=== PATIENT | male | born 1940 | race Caucasian/White ===

== ENCOUNTER 2017-09-08 12:01 | Emergency (ER) | payer MEDICARE, OTHER ==
[~2017-09-08] VITALS: Ht 188 cm; Wt 121.0 kg
[~2017-09-08 12:01] MED LIST: ATOR10 PO; AVOD0.5C PO; CIPR500T4 PO; COZA50TA PO; FOLI1TAB PO; LORTA5 PO; MAGN250T13 PO; METH2.5 PO; OMEG1CAP53 PO; PREV30CA36 PO; RAPA8CAP PO; SULF500T11 PO; WARF7.5 PO
[2017-09-08 12:06] VITALS: BP 177/92; PULSE 82; RESP 16; TEMP 98; O2SAT 96
[2017-09-08] MEDS ORDERED: METH2.5T PO (12:17)
[2017-09-08] MEDS ORDERED: TAMS0.4C4 PO (12:17)
[2017-09-08] MEDS ORDERED: ATOR10TA15 PO (12:17)
[2017-09-08] MEDS ORDERED: FOLI800T PO (12:17)
[2017-09-08] MEDS ORDERED: METO100T PO (12:24)
[2017-09-08] MEDS ORDERED: OMEP20TA93 PO (12:24)
[2017-09-08] MEDS ORDERED: SULF500T34 PO (12:24)
[2017-09-08] MEDS ORDERED: MAGN250T11 PO (12:24)
[2017-09-08] MEDS ORDERED: COUM7.5T PO (12:24)
[2017-09-08] MEDS ORDERED: OMEG1CAP53 PO (12:24)
[2017-09-08] MEDS ORDERED: SODIUM CHLORIDE 0.9% FLUSH 10 ML FLUSH IVF PRN (12:30)
[2017-09-08 12:35] VITALS: O2SAT 98
--- NOTE | 2017-09-08 12:42 | PD ---
HPI . Dizziness. Chief Complaint: Cardiac Complaint Time Seen by Provider: 12:14 Travel History International Travel<30 days: No Contact w/Intl Traveler<30days: No Traveled to known affect area: No History of Present Illness HPI Patient is a 76 year male on Coumadin due to a significant history of ventricular tachycardia and a Factor V deficiency presents with dizziness following 2 shocks from his implanted defibrillator. Patient reports this occurred roughly before 9:40AM in his garage when he felt light headed and sat down only to receive a small shock. Patient then decided it would be best to rest in his bed, but still felt dizzy and decided to lay down on the floor of the garage and felt an even bigger shock. The dizziness did resolve following the second shot. The patient and his then called their primary who told them to go to the hospital. Patient cannot recall any modifying factors. Patient denies any chest pain, chest pain with exertion, nausea, sweating, or shortness of breath. Patient has an AICD because of a previous history of VT. He states that he has not experienced defibrillations since the AICD was placed. PFSH Past Medical History Hx Anticoagulant Therapy: Yes (COUMADIN) Arthritis: Yes Asthma: No Blood Disorders: Yes (dvt and pe in past) Cardiovascular Problems: Yes (PACER/DEFIB) High Cholesterol: Yes COPD: No Diabetes: No Diminished Hearing: No Deep Vein Thrombosis: Yes Hypertension: Yes Kidney Stones: Yes Immunizations Current: No Tetanus Vaccination: > 5 Years Influenza Vaccination: Yes Past Surgical History Cardiac Surgery: Yes (DEFIBRILATOR/PACER) Eye Surgery: Yes (BILAT. CATARACT) Genitourinary Surgery: Yes (KIDNEY STONE) Thoracic Surgery: Yes (VENA CAVA FILTER) Tonsillectomy: Yes Other Surgery: Yes (RECTAL FISTULA) Social History Alcohol Use: No Tobacco Use: No Substance Use: No Allergies-Medications (Allergen,Severity, Reaction): Coded Allergies: *MDRO Multi-Drug Resistant Organism (Verified Adverse Reaction, Unknown, ) ESBL E. coli (urine) - 08/29/2015 Reported Meds & Prescriptions Reported Meds & Active Scripts Active Reported Metoprolol Tartrate 100 Mg Tab 100 Mg PO BID Omeprazole 20 Mg Tab 20 Mg PO DAILY Sulfasalazine DR (Sulfasalazine) 500 Mg Tab 1,000 Mg PO BID Lovaza (Fqgkj-9-Mffw Ethyl Esters) 1 Gm Cap 2 Gm PO BID Magnesium Oxide 250 Mg Tab 250 Mg PO DAILY Coumadin (Warfarin) 7.5 Mg Tab 7.5 Mg PO DAILY Tamsulosin (Tamsulosin HCl) 0.4 Mg Cap 0.4 Mg PO HS Folic Acid 0.8 Mg Tab 1 Mg PO DAILY Atorvastatin (Atorvastatin Calcium) 10 Mg Tab 10 Mg PO HS Methotrexate 2.5 Mg Tab 8 Tab PO Q7D Review of Systems Except as stated in HPI: all other systems reviewed are Neg HENT: Positive: Lightheadedness Cardiovascular: No: Chest Pain or Discomfort, Palpitations, Irregular Rhythm, Diaphoresis, Syncope, Dyspnea on exertion Respiratory: No: Shortness of Breath Gastrointestinal: No: Nausea, Vomiting Physical Exam Narrative GENERAL: Pleasant male in no acute distress SKIN: warm/dry. HEAD: Normocephalic. EYES: Pupils equal and round. No scleral icterus. No injection or drainage. ENT: No nasal bleeding or discharge. Mucous membranes pink and moist. NECK: Trachea midline. Full range of motion without pain.. CARDIOVASCULAR: Regular rate and rhythm. No clicks, rubs, or gallops. No bruits detected. RESPIRATORY: No accessory muscle use. Clear to auscultation. Breath sounds equal bilaterally. GASTROINTESTINAL: Abdomen soft. Nontender. Bowel sounds present. Nondistended. MUSCULOSKELETAL: No obvious deformities. NEUROLOGICAL: Awake and alert. No obvious cranial nerve deficits. Motor grossly within normal limits. Normal speech. PSYCHIATRIC: Appropriate mood and affect; insight and judgment normal. Data Data Last Documented VS Vital Signs Date Time Temp Pulse Resp B/P (MAP) Pulse Ox O2 Delivery O2 Flow Rate FiO2 09/08/17 13:35 61 14 157/92 (113) 97 Room Air 09/08/17 12:06 98.0 Orders Orders Basic Metabolic Panel (Bmp) (09/08/17 12:20) Ckmb (Isoenzyme) Profile (09/08/17 12:20) Complete Blood Count With Diff (09/08/17 12:20) Magnesium (Mg) (09/08/17 12:20) Prothrombin Time / Inr (Pt) (09/08/17 12:20) Act Partial Throm Time (Ptt) (09/08/17 12:20) Troponin I (09/08/17 12:20) Ecg Monitoring (09/08/17 12:20) Iv Access Insert/Monitor (09/08/17 12:20) Oximetry (09/08/17 12:20) Sodium Chloride 0.9% Flush (Ns Flush) (09/08/17 12:30) Electrocardiogram (09/08/17 12:34) Basic Metabolic Panel (Bmp) (09/08/17 12:34) CKMB (09/08/17 12:30) CKMB% (09/08/17 12:30) Labs Laboratory Tests Test 09/08/17 00:00 09/08/17 12:30 White Blood Count 6.8 TH/MM3 Red Blood Count 4.48 MIL/MM3 Hemoglobin 14.4 GM/DL Hematocrit 43.6 % Mean Corpuscular Volume 97.2 FL Mean Corpuscular Hemoglobin 32.2 PG Mean Corpuscular Hemoglobin Concent 33.1 % Red Cell Distribution Width 13.4 % Platelet Count 134 TH/MM3 Mean Platelet Volume 8.3 FL Neutrophils (%) (Auto) 72.3 % Lymphocytes (%) (Auto) 19.8 % Monocytes (%) (Auto) 5.8 % Eosinophils (%) (Auto) 0.8 % Basophils (%) (Auto) 1.3 % Neutrophils # (Auto) 4.9 TH/MM3 Lymphocytes # (Auto) 1.3 TH/MM3 Monocytes # (Auto) 0.4 TH/MM3 Eosinophils # (Auto) 0.1 TH/MM3 Basophils # (Auto) 0.1 TH/MM3 CBC Comment DIFF FINAL Differential Comment Prothrombin Time 28.1 SEC Prothromb Time International Ratio 2.8 RATIO Activated Partial Thromboplast Time 30.1 SEC Blood Urea Nitrogen 17 MG/DL Creatinine 1.10 MG/DL Random Glucose 125 MG/DL Calcium Level 8.5 MG/DL Magnesium Level 2.0 MG/DL Sodium Level 139 MEQ/L Potassium Level 4.1 MEQ/L Chloride Level 107 MEQ/L Carbon Dioxide Level 27.4 MEQ/L Anion Gap 5 MEQ/L Estimat Glomerular Filtration Rate 65 ML/MIN Total Creatine Kinase 153 U/L Creatine Kinase MB 2.6 NG/ML Troponin I 0.17 NG/ML MDM Medical Decision Making Medical Screen Exam Complete: Yes Emergency Medical Condition: Yes Interpretation(s) EKG shows a paced rhythm. Differential Diagnosis My differential diagnosis of AICD discharge includes but is not limited to inappropriate discharge, appropriate discharge, sensation of discharge with no discharge delivered Narrative Course Patient presents with the chief complaint of his AICD firing 2. He did have antecedent dizziness which resolved after the second shot. He has a history of V. tach which is why he has the AICD. His AICD has been interrogated. It did fire appropriately. CBC & BMP Diagram 09/08/17 12:30 Calcium Level 8.5, Magnesium Level 2.0 trop 0.17 which was expected since his AICD fired. This patient's AICD operated appropriately. He is safe for discharge to home. Diagnosis Primary Impression: AICD discharge Patient Instructions: General Instructions, Implantable Cardioverter Defibrillator (DC) Disposition: DISCHARGE HOME Condition: Stable Samantha Chopra MD Sep 08, 2017 12:42
[2017-09-08 12:53] LABS: AUTOMATED NEUTROPHIL # 4.9 TH/MM3 (1.8-7.7); BASOPHIL # 0.1 TH/MM3 (0-0.2); BASOPHIL % 1.3 % (0.0-2.0); EOSINOPHIL # 0.1 TH/MM3 (0-0.4); EOSINOPHIL % 0.8 % (0.0-4.0); HEMATOCRIT 43.6 % (39.0-51.0); HEMOGLOBIN 14.4 GM/DL (13.0-17.0); LYMPH % 19.8 % (9.0-44.0); LYMPHOCYTE # 1.3 TH/MM3 (1.0-4.8); MEAN CELL VOLUME 97.2 FL (80.0-100.0); MEAN CORPUSCULAR HEMOGLOBIN 32.2 PG (27.0-34.0); MEAN CORPUSCULAR HGB CONC 33.1 % (32.0-36.0); MEAN PLATELET VOLUME 8.3 FL (7.0-11.0); MONO % 5.8 % (0.0-8.0); MONOCYTE # 0.4 TH/MM3 (0-0.9); NEUT % 72.3 % (16.0-70.0); PLATELET COUNT 134 TH/MM3 (150-450); RED BLOOD COUNT 4.48 MIL/MM3 (4.50-5.90); RED CELL DISTRIBUTION WIDTH 13.4 % (11.6-17.2); WHITE BLOOD COUNT 6.8 TH/MM3 (4.0-11.0)
[2017-09-08 12:54] LABS: CHLORIDE 107 MEQ/L (98-107); SODIUM (NA) 139 MEQ/L (136-145)
[2017-09-08 12:56] LABS: CALCIUM 8.5 MG/DL (8.5-10.1)
[2017-09-08 12:57] LABS: BICARBONATE 27.4 MEQ/L (21.0-32.0); BLOOD UREA NITROGEN 17 MG/DL (7-18); GLUCOSE,RANDOM 125 MG/DL (74-106)
[2017-09-08 13:00] LABS: GLOMERULAR FILTRATION RATE 65 ML/MIN (>89)
[2017-09-08 13:04] LABS: INTERNATIONAL NORMALIZED RATIO 2.8 RATIO; PROTHROMBIN TIME - PATIENT 28.1 SEC (9.8-11.6)
[2017-09-08 13:05] LABS: TROPONIN I 0.17 NG/ML (0.02-0.05)
[2017-09-08 13:35] VITALS: BP 157/92; PULSE 61; RESP 14; O2SAT 97
[2017-09-08 14:31] VITALS: BP 157/83
--- NOTE | 2017-09-08 21:53 | EKG ---
Date Performed: 09/08/2017 Time Performed: 12:14:51 PTAGE: 76 years EK% AV sequential pacing ABNORMAL RHYTHM ECG PREVIOUS TRACING : 04/16/2014 07.55 DOCTOR: Abbe Gill Interpretating Date/Time 09/08/2017 21:51:20
== END 2017-09-08 14:34 | disposition home or self-care (01) ==
LOC: PHED 12:01
DX: T82.897A Other specified complication of cardiac prosthetic devices, implants and grafts, initial encounter (principal); E78.00 Pure hypercholesterolemia, unspecified; I10 Essential (primary) hypertension; R94.31 Abnormal electrocardiogram [ECG] [EKG]; Z79.01 Long term (current) use of anticoagulants; Z86.718 Personal history of other venous thrombosis and embolism
CPT/HCPCS: 80048; 82550; 82552; 83735; 84484; 85025; 85610; 85730; 93005; 99284

== ENCOUNTER 2017-09-12 11:12 | Inpatient (IN) | payer MEDICARE, OTHER ==
[~2017-09-12] VITALS: Ht 188 cm; Wt 120.1 kg
[~2017-09-12 11:12] MED LIST changes: -ATOR10 PO; +ATOR10TA15 PO; -AVOD0.5C PO; -CIPR500T4 PO; +COUM7.5T PO; -COZA50TA PO; -FOLI1TAB PO; +FOLI800T PO; -LORTA5 PO; +MAGN250T11 PO; -MAGN250T13 PO; -METH2.5 PO; +METH2.5T PO; +METO100T PO; +OMEP20TA93 PO; -PREV30CA36 PO; -RAPA8CAP PO; -SULF500T11 PO; +SULF500T34 PO; +TAMS0.4C4 PO; -WARF7.5 PO
[2017-09-12 11:14] VITALS: BP 177/86; PULSE 68; RESP 22; O2SAT 100
--- NOTE | 2017-09-12 11:25 | PD ---
HPI Chief Complaint: Cardiac Complaint Time Seen by Provider: 11:14 Travel History International Travel<30 days: No Contact w/Intl Traveler<30days: No Traveled to known affect area: No History of Present Illness HPI The patient is a 77-year-old male who presents to the emergency department for dizziness, blurry vision, and possible arrhythmia. The patient has a history of ventricular arrhythmias, had an AICD placed. The patient states he has a [employer] device and is followed by his hearing aid consultant, Dr. Wing. The patient states he was seen in the emergency department several days ago, had his pacemaker interrogated, stated he was shocked several times, although he only noticed to the shocks. The patient was discharged home and has an appointment on Monday with his hearing aid consultant. The patient states this morning he became lightheaded, dizzy, and had some blurry vision. When EMS arrived they noted the patient had several runs of ventricular tachycardia lasting less than 30 seconds. The patient denies any firing from his AICD. He denies any chest pain, shortness of breath, nausea, vomiting, or abdominal pain. The patient is anticoagulated on Coumadin for history of pulmonary embolism and DVT, also has an IVC filter in place. Symptoms are moderate, self resolving, possibly exacerbated by history of previous arrhythmias. PFSH Past Medical History Hx Anticoagulant Therapy: Yes (COUMADIN) Arthritis: Yes Asthma: No Blood Disorders: Yes (dvt and pe in past) Cardiovascular Problems: Yes (PACER/DEFIB) High Cholesterol: Yes COPD: No Diabetes: No Diminished Hearing: No Deep Vein Thrombosis: Yes Hypertension: Yes Kidney Stones: Yes Immunizations Current: No Past Surgical History Cardiac Surgery: Yes (DEFIBRILATOR/PACER) Eye Surgery: Yes (BILAT. CATARACT) Genitourinary Surgery: Yes (KIDNEY STONE) Thoracic Surgery: Yes (VENA CAVA FILTER) Tonsillectomy: Yes Other Surgery: Yes (RECTAL FISTULA) Social History Alcohol Use: No Tobacco Use: No Substance Use: No Allergies-Medications (Allergen,Severity, Reaction): Coded Allergies: *MDRO Multi-Drug Resistant Organism (Verified Adverse Reaction, Unknown, ) ESBL E. coli (urine) - 08/29/2015 Reported Meds & Prescriptions Reported Meds & Active Scripts Active Reported Metoprolol Tartrate 100 Mg Tab 100 Mg PO BID Omeprazole 20 Mg Tab 20 Mg PO DAILY Sulfasalazine DR (Sulfasalazine) 500 Mg Tab 1,000 Mg PO BID Lovaza (Ltorq-1-Llce Ethyl Esters) 1 Gm Cap 2 Gm PO BID Magnesium Oxide 250 Mg Tab 250 Mg PO DAILY Coumadin (Warfarin) 7.5 Mg Tab 7.5 Mg PO DAILY Tamsulosin (Tamsulosin HCl) 0.4 Mg Cap 0.8 Mg PO HS Folic Acid 0.8 Mg Tab 1 Mg PO DAILY Atorvastatin (Atorvastatin Calcium) 10 Mg Tab 10 Mg PO HS Methotrexate 2.5 Mg Tab 8 Tab PO Q7D Review of Systems Except as stated in HPI: all other systems reviewed are Neg General / Constitutional: No: Fever Eyes: Positive: Blurred Vision HENT: Positive: Lightheadedness Cardiovascular: Positive: Irregular Rhythm, Tachycardia, No: Chest Pain or Discomfort, Diaphoresis Respiratory: No: Shortness of Breath Gastrointestinal: No: Nausea, Vomiting, Abdominal Pain Musculoskeletal: No: Weakness Neurologic: Positive: Dizziness Physical Exam Narrative GENERAL: Awake, alert, pleasant 77-year-old male who appears his stated age and is in no acute respiratory distress. SKIN: Focused skin assessment warm/dry. HEAD: Atraumatic. Normocephalic. EYES: Pupils equal and round. No scleral icterus. No injection or drainage. ENT: No nasal bleeding or discharge. Mucous membranes pink and moist. NECK: Trachea midline. No JVD. CARDIOVASCULAR: Regular rate and rhythm. No murmur appreciated. Heart rate in the 70s. AICD in place left chest wall. RESPIRATORY: No accessory muscle use. Clear to auscultation. Breath sounds equal bilaterally. GASTROINTESTINAL: Abdomen soft, non-tender, nondistended. No rebound tenderness. MUSCULOSKELETAL: No obvious deformities. No clubbing. No cyanosis. No edema. NEUROLOGICAL: Awake and alert. No obvious cranial nerve deficits. Motor grossly within normal limits. Normal speech. Nonfocal. Oriented 4. PSYCHIATRIC: Appropriate mood and affect; insight and judgment normal. Data Data Last Documented VS Vital Signs Date Time Temp Pulse Resp B/P (MAP) Pulse Ox O2 Delivery O2 Flow Rate FiO2 09/12/17 13:40 60 13 130/75 (93) 100 Nasal Cannula 2.00 Orders Orders Electrocardiogram (09/12/17 11:20) Ckmb (Isoenzyme) Profile (09/12/17 11:20) Complete Blood Count With Diff (09/12/17 11:20) Comprehensive Metabolic Panel (09/12/17 11:20) Magnesium (Mg) (09/12/17 11:20) Prothrombin Time / Inr (Pt) (09/12/17 11:20) Act Partial Throm Time (Ptt) (09/12/17 11:20) Troponin I (09/12/17 11:20) Ecg Monitoring (09/12/17 11:20) Iv Access Insert/Monitor (09/12/17 11:20) Oximetry (09/12/17 11:20) Oxygen Administration (09/12/17 11:20) Sodium Chloride 0.9% Flush (Ns Flush) (09/12/17 11:30) CKMB (09/12/17 11:15) CKMB% (09/12/17 11:15) Metoprolol Tartrate Inj (Lopressor Inj) (09/12/17 13:30) Magnesium Sulfate 1 Gm Premix (Magnesium (09/12/17 13:45) Admit Order (Ed Use Only) (09/12/17 13:47) Labs Laboratory Tests Test 09/12/17 11:15 White Blood Count 6.8 TH/MM3 Red Blood Count 4.68 MIL/MM3 Hemoglobin 15.3 GM/DL Hematocrit 46.1 % Mean Corpuscular Volume 98.4 FL Mean Corpuscular Hemoglobin 32.7 PG Mean Corpuscular Hemoglobin Concent 33.3 % Red Cell Distribution Width 14.0 % Platelet Count 156 TH/MM3 Mean Platelet Volume 8.5 FL Neutrophils (%) (Auto) 64.1 % Lymphocytes (%) (Auto) 28.2 % Monocytes (%) (Auto) 6.0 % Eosinophils (%) (Auto) 1.2 % Basophils (%) (Auto) 0.5 % Neutrophils # (Auto) 4.3 TH/MM3 Lymphocytes # (Auto) 1.9 TH/MM3 Monocytes # (Auto) 0.4 TH/MM3 Eosinophils # (Auto) 0.1 TH/MM3 Basophils # (Auto) 0.0 TH/MM3 CBC Comment DIFF FINAL Differential Comment Prothrombin Time 25.7 SEC Prothromb Time International Ratio 2.5 RATIO Activated Partial Thromboplast Time 28.9 SEC Blood Urea Nitrogen 18 MG/DL Creatinine 0.95 MG/DL Random Glucose 85 MG/DL Total Protein 7.0 GM/DL Albumin 3.4 GM/DL Calcium Level 8.0 MG/DL Magnesium Level 1.9 MG/DL Alkaline Phosphatase 59 U/L Aspartate Amino Transf (AST/SGOT) 48 U/L Alanine Aminotransferase (ALT/SGPT) 35 U/L Total Bilirubin 0.5 MG/DL Sodium Level 141 MEQ/L Potassium Level 4.5 MEQ/L Chloride Level 108 MEQ/L Carbon Dioxide Level 27.9 MEQ/L Anion Gap 5 MEQ/L Estimat Glomerular Filtration Rate 77 ML/MIN Total Creatine Kinase 145 U/L Creatine Kinase MB 1.1 NG/ML Troponin I LESS THAN 0.02 NG/ML MDM Medical Decision Making Medical Screen Exam Complete: Yes Emergency Medical Condition: Yes Medical Record Reviewed: Yes Interpretation(s) Laboratory Tests Test 09/12/17 11:15 White Blood Count 6.8 TH/MM3 Red Blood Count 4.68 MIL/MM3 Hemoglobin 15.3 GM/DL Hematocrit 46.1 % Mean Corpuscular Volume 98.4 FL Mean Corpuscular Hemoglobin 32.7 PG Mean Corpuscular Hemoglobin Concent 33.3 % Red Cell Distribution Width 14.0 % Platelet Count 156 TH/MM3 Mean Platelet Volume 8.5 FL Neutrophils (%) (Auto) 64.1 % Lymphocytes (%) (Auto) 28.2 % Monocytes (%) (Auto) 6.0 % Eosinophils (%) (Auto) 1.2 % Basophils (%) (Auto) 0.5 % Neutrophils # (Auto) 4.3 TH/MM3 Lymphocytes # (Auto) 1.9 TH/MM3 Monocytes # (Auto) 0.4 TH/MM3 Eosinophils # (Auto) 0.1 TH/MM3 Basophils # (Auto) 0.0 TH/MM3 CBC Comment DIFF FINAL Differential Comment Prothrombin Time 25.7 SEC Prothromb Time International Ratio 2.5 RATIO Activated Partial Thromboplast Time 28.9 SEC Blood Urea Nitrogen 18 MG/DL Creatinine 0.95 MG/DL Random Glucose 85 MG/DL Total Protein 7.0 GM/DL Albumin 3.4 GM/DL Calcium Level 8.0 MG/DL Magnesium Level 1.9 MG/DL Alkaline Phosphatase 59 U/L Aspartate Amino Transf (AST/SGOT) 48 U/L Alanine Aminotransferase (ALT/SGPT) 35 U/L Total Bilirubin 0.5 MG/DL Sodium Level 141 MEQ/L Potassium Level 4.5 MEQ/L Chloride Level 108 MEQ/L Carbon Dioxide Level 27.9 MEQ/L Anion Gap 5 MEQ/L Estimat Glomerular Filtration Rate 77 ML/MIN Total Creatine Kinase 145 U/L Creatine Kinase MB 1.1 NG/ML Troponin I LESS THAN 0.02 NG/ML Differential Diagnosis Differential diagnosis includes nonsustained ventricular tachycardia, ventricular tachycardia, electrolyte abnormality, cardiomyopathy, ischemic heart disease. Narrative Course IV was established, labs are drawn and sent, and the patient was placed on cardiac telemetry monitoring and continuous pulse oximetry monitoring. EKG was ordered and interpreted. [employer] was notified to interrogate the patient's pacemaker. The patient's pacemaker/AICD was evaluated by [employer], the patient had 30 runs of V. tach, most of them were terminated by pacer function, however, there have been 30 episodes of ventricular tachycardia since September 08. Therefore, a call was placed to the patient's hearing aid consultant, Dr. Wing , 1:16 PM. I discussed the patient with Dr. Wing, after discussion was agreed the patient would receive Lopressor 5 mg intravenously and will be admitted to the medical service. The patient's primary physician is Dr. Jimenez , therefore, [facility] for paged for admission. The patient's the patient's potassium was 4.5, magnesium was 1.9, therefore, 1 g of magnesium was given IVP back to get the magnesium level greater than 2.0. Physician Communication Physician Communication [facility] I discussed the patient with Dr. Chapa who agrees with admission Diagnosis Primary Impression: Ventricular tachyarrhythmia Admitting Information Admitting Physician Requests: Admit Condition: Stable Kwesi Talamantes MD Sep 12, 2017 11:24
[2017-09-12] MEDS ORDERED: SODIUM CHLORIDE 0.9% FLUSH 10 ML FLUSH IVF PRN (11:30)
[2017-09-12 11:49] LABS: AUTOMATED NEUTROPHIL # 4.3 TH/MM3 (1.8-7.7); BASOPHIL % 0.5 % (0.0-2.0); EOSINOPHIL # 0.1 TH/MM3 (0-0.4); EOSINOPHIL % 1.2 % (0.0-4.0); HEMATOCRIT 46.1 % (39.0-51.0); HEMOGLOBIN 15.3 GM/DL (13.0-17.0); LYMPH % 28.2 % (9.0-44.0); LYMPHOCYTE # 1.9 TH/MM3 (1.0-4.8); MEAN CELL VOLUME 98.4 FL (80.0-100.0); MEAN CORPUSCULAR HEMOGLOBIN 32.7 PG (27.0-34.0); MEAN CORPUSCULAR HGB CONC 33.3 % (32.0-36.0); MEAN PLATELET VOLUME 8.5 FL (7.0-11.0); MONOCYTE # 0.4 TH/MM3 (0-0.9); NEUT % 64.1 % (16.0-70.0); PLATELET COUNT 156 TH/MM3 (150-450); RED BLOOD COUNT 4.68 MIL/MM3 (4.50-5.90); WHITE BLOOD COUNT 6.8 TH/MM3 (4.0-11.0)
[2017-09-12 12:00] VITALS: BP_SYST 139; BP_SYST 160; BP_DIAS 74; BP_DIAS 76; PULSE 58; PULSE 74; RESP 11; RESP 14; O2SAT 99
[2017-09-12 12:04] LABS: INTERNATIONAL NORMALIZED RATIO 2.5 RATIO; PROTHROMBIN TIME - PATIENT 25.7 SEC (9.8-11.6)
[2017-09-12 13:19] LABS: ALBUMIN 3.4 GM/DL (3.4-5.0); BICARBONATE 27.9 MEQ/L (21.0-32.0); BLOOD UREA NITROGEN 18 MG/DL (7-18); CHLORIDE 108 MEQ/L (98-107); CREATININE 0.95 MG/DL (0.60-1.30); GLOMERULAR FILTRATION RATE 77 ML/MIN (>89); GLUCOSE,RANDOM 85 MG/DL (74-106); MAGNESIUM 1.9 MG/DL (1.5-2.5); SODIUM (NA) 141 MEQ/L (136-145); TOTAL BILIRUBIN ADULT 0.5 MG/DL (0.2-1.0)
[2017-09-12 13:21] LABS: ALKALINE PHOSPHATASE 59 U/L (45-117); ALT (GPT) 35 U/L (12-78); AST (GOT) 48 U/L (15-37); TROPONIN I LESS THAN 0.02 NG/ML (0.02-0.05)
[2017-09-12] MEDS ORDERED: METOPROLOL TARTRATE 5 MG/5 ML VIAL IV PUSH ONE (13:30)
[2017-09-12 13:40] VITALS: BP 130/75; PULSE 60; RESP 13; O2SAT 100
[2017-09-12] MEDS ORDERED: MAGNESIUM SULFATE 1 GM PREMIX 100 ML IV ONE (13:45)
[2017-09-12] MEDS ORDERED: LACTULOSE SYRUP 20 GM/30 ML CUP PO PRN (14:00)
[2017-09-12] MEDS ORDERED: SODIUM CHLORIDE 0.9% FLUSH 10 ML FLUSH IV FLUSH PRN (14:00)
[2017-09-12] MEDS ORDERED: MAGNESIUM HYDROXIDE SUSP 30 ML CUP PO PRN (14:00)
[2017-09-12] MEDS ORDERED: ACETAMINOPHEN 325 MG TAB PO PRN (14:00)
[2017-09-12] MEDS ORDERED: TEMAZEPAM 15 MG CAP PO PRN (14:00)
[2017-09-12] MEDS ORDERED: SENNOSIDES 8.6 MG TAB PO PRN (14:00)
[2017-09-12] MEDS ORDERED: BISACODYL 10 MG SUPP RECTAL PRN (14:00)
[2017-09-12] MEDS ORDERED: ONDANSETRON HCL 4 MG/2 ML VIAL IVP PRN (14:00)
[2017-09-12] MEDS ORDERED: NALOXONE HCL 0.4 MG/ML AMP IV PUSH PRN (14:00)
[2017-09-12] MEDS ORDERED: METOPROLOL TARTRATE 5 MG/5 ML VIAL IV PUSH PRN (14:00)
[2017-09-12 14:31] VITALS: BP 135/81; PULSE 61; RESP 12; O2SAT 98
--- NOTE | 2017-09-12 15:47 | HHI.HP ---
HPI Service [facility] Primary Care Physician Unknown Admission Diagnosis ventricular tachyarrhythmia Diagnoses: Chief Complaint: sob Travel History International Travel<30 Days: No Contact w/Intl Traveler <30 Da: No Traveled to Known Affected Are: No History of Present Illness 77-year-old male who presents to the emergency department for dizziness, blurry vision, and possible arrhythmia. The patient has a history of ventricular arrhythmias, had an AICD placed. The patient states he has a [employer] device and is followed by his warehouse operations associate, Dr. Wing. The patient states he was seen in the emergency department several days ago, had his pacemaker interrogated, stated he was shocked several times, although he only noticed to the shocks. The patient was discharged home and has an appointment on Monday with his warehouse operations associate. The patient states this morning he became lightheaded, dizzy, and had some blurry vision. When EMS arrived they noted the patient had several runs of ventricular tachycardia lasting less than 30 seconds. The patient denies any firing from his AICD. He denies any chest pain, shortness of breath, nausea, vomiting, or abdominal pain. The patient is anticoagulated on Coumadin for history of pulmonary embolism and DVT , also has an IVC filter in place. Symptoms are moderate, self resolving, possibly exacerbated by history of previous arrhythmias. Patient had the pacemaker interrogated Patient had the pacemaker/AICD interrogated and had 30 runs of V. tach and habits 30 runs of V. tach since September 08. All seem to be terminated by the pacemaker function. Dr. Wing cardiology patient to receive Lopressor 5 mg IV patient received Lopressor 5 mg IV which was administered in the emergency room which was administered in the emergency room . Review of Systems Except as stated in HPI: all other systems reviewed are Neg Past Family Social History Past Medical History A. fib, hypertension hyperlipidemia, history of DVT, hypertension, hypertension , A. fib, hyperlipidemia, history of DVT Past Surgical History AICD Bilateral cataract surgery Bilateral cataract surgery Lithotripsy Lithotripsy Filter vena cava Surgery for rectal fistula Reported Medications Reported Meds & Active Scripts Active Reported Metoprolol Tartrate 100 Mg Tab 100 Mg PO BID Omeprazole 20 Mg Tab 20 Mg PO DAILY Sulfasalazine DR (Sulfasalazine) 500 Mg Tab 1,000 Mg PO BID Lovaza (Ghuse-1-Erjy Ethyl Esters) 1 Gm Cap 2 Gm PO BID Magnesium Oxide 250 Mg Tab 250 Mg PO DAILY Coumadin (Warfarin) 7.5 Mg Tab 7.5 Mg PO DAILY Tamsulosin (Tamsulosin HCl) 0.4 Mg Cap 0.8 Mg PO HS Folic Acid 0.8 Mg Tab 1 Mg PO DAILY Atorvastatin (Atorvastatin Calcium) 10 Mg Tab 10 Mg PO HS Methotrexate 2.5 Mg Tab 8 Tab PO Q7D Allergies: Coded Allergies: *MDRO Multi-Drug Resistant Organism (Verified Adverse Reaction, Unknown, ) ESBL E. coli (urine) - 08/29/2015 Family History No cardiac history in his family that he recalls. Social History Denies alcohol use, tobacco use or drug use. Physical Exam Vital Signs Vital Signs Date Time Temp Pulse Resp B/P (MAP) Pulse Ox O2 Delivery O2 Flow Rate FiO2 09/12/17 14:31 61 12 135/81 (99) 98 Nasal Cannula 2.00 09/12/17 13:40 60 13 130/75 (93) 100 Nasal Cannula 2.00 09/12/17 12:00 58 11 139/76 (97) 99 Nasal Cannula 2.00 09/12/17 11:24 61 100 Nasal Cannula 2.00 09/12/17 11:23 100 Nasal Cannula 2.00 09/12/17 11:14 68 22 177/86 (116) 100 Physical Exam GENERAL: This is a well-nourished, well-developed patient, in no apparent distress. SKIN: No rashes, ecchymoses or lesions. Cool and dry. HEAD: Atraumatic. Normocephalic. No temporal or scalp tenderness. EYES: Pupils equal round and reactive. Extraocular motions intact. No scleral icterus. No injection or drainage. ENT: Nose without bleeding, purulent drainage or septal hematoma. Throat without erythema, tonsillar hypertrophy or exudate. Uvula midline. Airway patent. NECK: Trachea midline. No JVD or lymphadenopathy. Supple, nontender, no meningeal signs. CARDIOVASCULAR: Regular rate and rhythm without murmurs, gallops, or rubs. RESPIRATORY: Clear to auscultation. Breath sounds equal bilaterally. No wheezes , rales, or rhonchi. GASTROINTESTINAL: Abdomen soft, non-tender, nondistended. No hepato-splenomegaly , or palpable masses. No guarding. MUSCULOSKELETAL: Extremities without clubbing, cyanosis, or edema. No joint tenderness, effusion, or edema noted. No calf tenderness. Negative Homans sign bilaterally. NEUROLOGICAL: Awake and alert. Cranial nerves II through XII intact. Motor and sensory grossly within normal limits. Five out of 5 muscle strength in all muscle groups. Normal speech. Laboratory Laboratory Tests Test 09/12/17 11:15 White Blood Count 6.8 Red Blood Count 4.68 Hemoglobin 15.3 Hematocrit 46.1 Mean Corpuscular Volume 98.4 Mean Corpuscular Hemoglobin 32.7 Mean Corpuscular Hemoglobin Concent 33.3 Red Cell Distribution Width 14.0 Platelet Count 156 Mean Platelet Volume 8.5 Neutrophils (%) (Auto) 64.1 Lymphocytes (%) (Auto) 28.2 Monocytes (%) (Auto) 6.0 Eosinophils (%) (Auto) 1.2 Basophils (%) (Auto) 0.5 Neutrophils # (Auto) 4.3 Lymphocytes # (Auto) 1.9 Monocytes # (Auto) 0.4 Eosinophils # (Auto) 0.1 Basophils # (Auto) 0.0 CBC Comment DIFF FINAL Differential Comment Prothrombin Time 25.7 Prothromb Time International Ratio 2.5 Activated Partial Thromboplast Time 28.9 Blood Urea Nitrogen 18 Creatinine 0.95 Random Glucose 85 Total Protein 7.0 Albumin 3.4 Calcium Level 8.0 Magnesium Level 1.9 Alkaline Phosphatase 59 Aspartate Amino Transf (AST/SGOT) 48 Alanine Aminotransferase (ALT/SGPT) 35 Total Bilirubin 0.5 Sodium Level 141 Potassium Level 4.5 Chloride Level 108 Carbon Dioxide Level 27.9 Anion Gap 5 Estimat Glomerular Filtration Rate 77 Total Creatine Kinase 145 Creatine Kinase MB 1.1 Troponin I LESS THAN 0.02 Result Diagram: 09/12/17 1115 09/12/17 111 Caprini VTE Risk Assessment Caprini VTE Risk Assessment: Mod/High Risk (score >= 2) Caprini Risk Assessment Model Point Value = 1 Point Value = 2 Point Value = 3 Point Value = 5 Age 41-60 Minor surgery BMI > 25 kg/m2 Swollen legs Varicose veins or History of unexplained or recurrent spontaneous Oral contraceptives or hormone replacement Sepsis (< 1 month) Serious lung disease, including pneumonia (< 1 month) Abnormal pulmonary function Acute myocardial infarction Congestive heart failure (< 1 month) History of inflammatory bowel disease Medical patient at bed rest Age 61-74 Arthroscopic surgery Major open surgery (> 45 min) Laparoscopic surgery (> 45 min) Malignancy Confined to bed (> 72 hours) Immobilizing plaster cast Central venous access Age >= 75 History of VTE Family history of VTE Factor V Leiden Prothrombin [id number] Lupus anticoagulant Anticardiolipin antibodies Elevated serum homocysteine Heparin-induced thrombocytopenia Other congenital or acquired thrombophilia Stroke (< 1 month) Elective arthroplasty Hip, pelvis, or leg fracture Acute spinal cord injury (< 1 month) Prophylaxis Regimen Total Risk Factor Score Risk Level Prophylaxis Regimen 0-1 Low Early ambulation 2 Moderate Order ONE of the following: *Sequential Compression Device (SCD) *Heparin 5000 units SQ BID 3-4 Higher Order ONE of the following medications: *Heparin 5000 units SQ TID *Enoxaparin/Lovenox 40 mg SQ daily (WT < 150 kg, CrCl > 30 mL/min) *Enoxaparin/Lovenox 30 mg SQ daily (WT < 150 kg, CrCl > 10-29 mL/min) *Enoxaparin/Lovenox 30 mg SQ BID (WT < 150 kg, CrCl > 30 mL/min) AND/OR *Sequential Compression Device (SCD) 5 or more Highest Order ONE of the following medications: *Heparin 5000 units SQ TID (Preferred with Epidurals) *Enoxaparin/Lovenox 40 mg SQ daily (WT < 150 kg, CrCl > 30 mL/min) *Enoxaparin/Lovenox 30 mg SQ daily (WT < 150 kg, CrCl > 10-29 mL/min) *Enoxaparin/Lovenox 30 mg SQ BID (WT < 150 kg, CrCl > 30 mL/min) AND *Sequential Compression Device (SCD) Assessment and Plan Assessment and Plan Ventricular tachyarrhythmia Patient had a recent AICD/pacemaker placement and was interrogated found with 30 episodes of ventricular tachycardia since September 08 all terminated by patient function. Administer Lopressor 5 mg by IV per Dr. Wing patient's cardiology. Restart home medications. Monitor on telemetry Chronic medical problems. At baseline. Restart home medications. Monitor. Adjust medications as needed. Discussed Condition With Patient, nurse, ED physician Dr. Meyer. Physician Certification 2 Midnight Certification Type: Admission for Inpatient Services Order for Inpatient Services The services are ordered in accordance with Medicare regulations or non- Medicare payer requirements, as applicable. In the case of services not specified as inpatient-only, they are appropriately provided as inpatient services in accordance with the 2-midnight benchmark. Estimated LOS (days): 3 days is the estimated time the patient will need to remain in the hospital, assuming treatment plan goals are met and no additional complications. Post-Hospital Plan: Home Alee Chapa MD Sep 12, 2017 15:47
[2017-09-12] MEDS ORDERED: METHOTREXATE 2.5 MG TAB PO SCH (16:00)
[2017-09-12 16:06] VITALS: BP 152/73; PULSE 55; RESP 18; TEMP 97.2; O2SAT 97
--- NOTE | 2017-09-12 18:46 | MB ---
cc: LUANN LOPEZ MD DATE OF CONSULTATION 09/12/2017 REASON FOR CONSULTATION Ventricular tachycardia. HISTORY OF PRESENT ILLNESS Mr. Rodríguez is a 77-year-old patient of mine who does have a history of primary ventricular tachycardia. He had a cardiac catheterization several years ago that was free of any significant disease. He subsequently underwent ICD implantation. He has been doing quite well with his metoprolol up until last Monday. Monday the patient had two episodes where he felt shocks. He subsequently was referred and came to the emergency room where interrogation indeed did show that he had received both ATP and defibrillation. The patient was discharged home without any medication changes. He subsequently had difficulties over the weekend with dizziness and lightheadedness as well as some blurred vision. He again came to the hospital and interrogation reveals that the patient has had 30 runs of ventricular tachycardia. The patient was subsequently admitted. PAST MEDICAL HISTORY Significant for: 1. Atrial fibrillation. 2. Hypertension. 3. Hyperlipidemia. 4. DVT. 5. Ventricular tachycardia with Medtronic ICD. 6. The patient did have cardiac catheterization in April of 2014 with normal coronaries and normal LV function. 7. Bilateral cataract surgery. 8. Lithotripsy. 9. And a rectal fistula. OUTPATIENT MEDICATIONS Include: 1. Metoprolol tartrate 100 milligrams twice a day. 2. Lovaza. 3. Coumadin. 4. Flomax 0.8 milligrams q.h.s. 5. Losartan 25 mg a day. 6. Atorvastatin. 7. Methotrexate. ALLERGIES NO KNOWN DRUG ALLERGIES. SOCIAL HISTORY The patient is . REVIEW OF SYSTEMS Except as mentioned in HPI all 12 systems are negative. PHYSICAL EXAMINATION VITAL SIGNS: 51, 12M, 135/81. GENERAL: In general he is an overweight man who is in no apparent distress. NECK: His neck is free from JVD. LUNGS: Bilaterally clear to auscultation. CARDIOVASCULAR: Examination he has a normal S1 and S2. ABDOMEN: Soft. EXTREMITIES: Are free from edema. ICD interrogation shows multiple runs of V-tach. IMPRESSION Ventricular tachycardia - the patient does have a history of the same. His blood pressure is fairly high such that I believe he will be able to tolerate metoprolol 150 mg b.i.d. I do not feel any repeat ischemia workup is indicated. Hypertension - I am going to hold his losartan at this point so we can increase the metoprolol. BPH - the Flomax as well will be held to afford more room for the metoprolol. Ken Orellana/KK /5:29 PM /6:22 PM SOPHIA
[2017-09-12 20:00] VITALS: BP 122/76; PULSE 59; PULSE 60; RESP 16; TEMP 97.9; O2SAT 98
[2017-09-12] MEDS: METOPROLOL TARTRATE 50 MG TAB PO SCH (20:49)
[2017-09-12] MEDS: sulfaSALAzine EC 500 MG TABEC PO SCH (20:49)
[2017-09-12] MEDS: DOCUSATE SODIUM 50 MG/SENNA 8.6 MG TAB PO SCH (20:49)
[2017-09-12] MEDS: SODIUM CHLORIDE 0.9% FLUSH 10 ML FLUSH IV FLUSH SCH (20:49)
[2017-09-12] MEDS ORDERED: METOPROLOL TARTRATE 100 MG TAB PO SCH (21:00)
[2017-09-12] MEDS ORDERED: ATORVASTATIN 10 MG TAB PO SCH (21:00)
[2017-09-12] MEDS ORDERED: TAMSULOSIN HCL 0.4 MG CAP PO SCH (21:00)
[2017-09-13] VITALS: BP 116/75; PULSE 59; PULSE 61; RESP 18; TEMP 99; O2SAT 97
[2017-09-13 04:00] VITALS: BP 119/76; PULSE 60; RESP 18; TEMP 97.8; O2SAT 97
[2017-09-13] MEDS: SODIUM CHLORIDE 0.9% FLUSH 10 ML FLUSH IV FLUSH SCH (06:52)
[2017-09-13 06:56] LABS: AUTOMATED NEUTROPHIL # 5.6 TH/MM3 (1.8-7.7); BASOPHIL % 0.4 % (0.0-2.0); EOSINOPHIL # 0.1 TH/MM3 (0-0.4); EOSINOPHIL % 1.4 % (0.0-4.0); HEMATOCRIT 43.7 % (39.0-51.0); HEMOGLOBIN 14.8 GM/DL (13.0-17.0); LYMPH % 28.1 % (9.0-44.0); LYMPHOCYTE # 2.4 TH/MM3 (1.0-4.8); MEAN CELL VOLUME 98.4 FL (80.0-100.0); MEAN CORPUSCULAR HEMOGLOBIN 33.3 PG (27.0-34.0); MEAN CORPUSCULAR HGB CONC 33.8 % (32.0-36.0); MEAN PLATELET VOLUME 8.6 FL (7.0-11.0); MONO % 4.9 % (0.0-8.0); MONOCYTE # 0.4 TH/MM3 (0-0.9); NEUT % 65.2 % (16.0-70.0); PLATELET COUNT 145 TH/MM3 (150-450); RED BLOOD COUNT 4.44 MIL/MM3 (4.50-5.90); WHITE BLOOD COUNT 8.6 TH/MM3 (4.0-11.0)
[2017-09-13 07:02] LABS: INTERNATIONAL NORMALIZED RATIO 2.4 RATIO; PROTHROMBIN TIME - PATIENT 23.8 SEC (9.8-11.6)
--- NOTE | 2017-09-13 07:04 | PD.CARD.PN ---
Subjective Subjective Remarks PT without complaints, requests d/c Objective Medications Current Medications Medications (Trade) Dose Ordered Sig/Delmy Route Start Time Stop Time Status Last Admin (NS Flush) 2 ml UNSCH PRN IVF 09/12/17 11:30 (Lipitor) 10 mg HS PO 09/12/17 21:00 09/12/17 20:48 (Azulfidine Ec) 1,000 mg BID PO 09/12/17 21:00 (Coumadin) 7.5 mg DAILY@1600 PO 09/13/17 16:00 (Mag-Ox) 400 mg DAILY PO 09/13/17 09:00 (Protonix) 20 mg DAILY PO 09/13/17 09:00 (Lopressor Inj) 5 mg Q6H PRN IV PUSH 09/12/17 14:00 (NS Flush) 2 ml UNSCH PRN IV FLUSH 09/12/17 14:00 (NS Flush) 2 ml BID IV FLUSH 09/12/17 21:00 09/13/17 06:52 (Tylenol) 650 mg Q4H PRN PO 09/12/17 14:00 (Zofran Inj) 4 mg Q6H PRN IVP 09/12/17 14:00 (Restoril) 15 mg HS PRN PO 09/12/17 14:00 (Narcan Inj) 0.4 mg UNSCH PRN IV PUSH 09/12/17 14:00 (Tere-Colace) 1 tab BID PO 09/12/17 21:00 09/12/17 20:49 (Milk Of Magnesia Liq) 30 ml Q12H PRN PO 09/12/17 14:00 (Senokot) 17.2 mg Q12H PRN PO 09/12/17 14:00 (Dulcolax Supp) 10 mg DAILY PRN RECTAL 09/12/17 14:00 (Lactulose Liq) 30 ml DAILY PRN PO 09/12/17 14:00 Pharmacy Profile Note 0 ml @ 0 mls/hr UNSCH OTHER 09/12/17 14:00 (Rheumatrex) 20 mg Q7D PO 09/16/17 09:00 (Lopressor) 150 mg BID PO 09/12/17 21:00 09/12/17 20:49 Vital Signs / I&O Vital Signs Date Time Temp Pulse Resp B/P (MAP) Pulse Ox O2 Delivery O2 Flow Rate FiO2 09/13/17 04:00 Nasal Cannula 2.00 09/13/17 00:00 61 09/13/17 00:00 Nasal Cannula 2.00 09/12/17 20:00 59 09/12/17 20:00 Nasal Cannula 2.00 09/12/17 20:00 97.9 60 16 122/76 (91) 98 09/12/17 16:06 97.2 55 18 152/73 (99) 97 09/12/17 15:54 09/12/17 14:31 61 12 135/81 (99) 98 Nasal Cannula 2.00 09/12/17 13:40 60 13 130/75 (93) 100 Nasal Cannula 2.00 09/12/17 12:00 58 11 139/76 (97) 99 Nasal Cannula 2.00 09/12/17 11:24 61 100 Nasal Cannula 2.00 09/12/17 11:23 100 Nasal Cannula 2.00 09/12/17 11:14 68 22 177/86 (116) 100 I/O 09/12/17 09/12/17 09/12/17 09/13/17 09/13/17 09/13/17 07:00 15:00 23:00 07:00 15:00 23:00 Intake Total 100 ml Output Total 800 ml Balance -700 ml Intake IV Total 100 ml Output Urine Total 800 ml Physical Exam GENERAL: Well developed, well nourished. No acute distress. HEENT: Jugular venous pressure is normal. CHEST: Lungs clear to auscultation bilaterally. Unlabored respiratory effort. CARDIAC: Regular rate and rhythm without S3, S4, or murmur. ABDOMEN: Soft, nontender, no hepatosplenomegaly. Bowel sounds present. EXTREMITIES: No clubbing, cyanosis, or edema. Laboratory Laboratory Tests Test 09/12/17 11:15 09/13/17 05:44 White Blood Count 6.8 TH/MM3 8.6 TH/MM3 Red Blood Count 4.68 MIL/MM3 4.44 MIL/MM3 Hemoglobin 15.3 GM/DL 14.8 GM/DL Hematocrit 46.1 % 43.7 % Mean Corpuscular Volume 98.4 FL 98.4 FL Mean Corpuscular Hemoglobin 32.7 PG 33.3 PG Mean Corpuscular Hemoglobin Concent 33.3 % 33.8 % Red Cell Distribution Width 14.0 % 14.0 % Platelet Count 156 TH/MM3 145 TH/MM3 Mean Platelet Volume 8.5 FL 8.6 FL Neutrophils (%) (Auto) 64.1 % 65.2 % Lymphocytes (%) (Auto) 28.2 % 28.1 % Monocytes (%) (Auto) 6.0 % 4.9 % Eosinophils (%) (Auto) 1.2 % 1.4 % Basophils (%) (Auto) 0.5 % 0.4 % Neutrophils # (Auto) 4.3 TH/MM3 5.6 TH/MM3 Lymphocytes # (Auto) 1.9 TH/MM3 2.4 TH/MM3 Monocytes # (Auto) 0.4 TH/MM3 0.4 TH/MM3 Eosinophils # (Auto) 0.1 TH/MM3 0.1 TH/MM3 Basophils # (Auto) 0.0 TH/MM3 0.0 TH/MM3 CBC Comment DIFF FINAL DIFF FINAL Differential Comment Prothrombin Time 25.7 SEC Prothromb Time International Ratio 2.5 RATIO Activated Partial Thromboplast Time 28.9 SEC Blood Urea Nitrogen 18 MG/DL Creatinine 0.95 MG/DL Random Glucose 85 MG/DL Total Protein 7.0 GM/DL Albumin 3.4 GM/DL Calcium Level 8.0 MG/DL Magnesium Level 1.9 MG/DL Alkaline Phosphatase 59 U/L Aspartate Amino Transf (AST/SGOT) 48 U/L Alanine Aminotransferase (ALT/SGPT) 35 U/L Total Bilirubin 0.5 MG/DL Sodium Level 141 MEQ/L Potassium Level 4.5 MEQ/L Chloride Level 108 MEQ/L Carbon Dioxide Level 27.9 MEQ/L Anion Gap 5 MEQ/L Estimat Glomerular Filtration Rate 77 ML/MIN Total Creatine Kinase 145 U/L Creatine Kinase MB 1.1 NG/ML Troponin I LESS THAN 0.02 NG/ML Assessment and Plan Assessment and Plan Primary VT- doing well over night on 150 metoprolol -ok for ambulation after second dose this am -reasonable for d/c this afternoon if no significant VT HTN- good on present meds, continue to hold losartan dispo- ok for d/c later today as above and follow up early next week -no strenuous activity for now Guillermina Wing MD Sep 13, 2017 07:04
[2017-09-13 07:22] LABS: BICARBONATE 28.4 MEQ/L (21.0-32.0); CALCIUM 8.5 MG/DL (8.5-10.1); CREATININE 0.94 MG/DL (0.60-1.30)
[2017-09-13 08:00] VITALS: BP 120/75; PULSE 67; RESP 18; TEMP 97.1; O2SAT 96
[2017-09-13] MEDS: METOPROLOL TARTRATE 50 MG TAB PO SCH (08:22)
[2017-09-13] MEDS: DOCUSATE SODIUM 50 MG/SENNA 8.6 MG TAB PO SCH (08:22)
[2017-09-13] MEDS: sulfaSALAzine EC 500 MG TABEC PO SCH (08:22)
[2017-09-13] MEDS ORDERED: MAGNESIUM OXIDE 400 MG TAB PO SCH (09:00)
[2017-09-13] MEDS ORDERED: PANTOPRAZOLE SOD 20 MG DELAYED RELEASE TAB PO SCH (09:00)
[2017-09-13 12:00] VITALS: O2SAT 96
--- NOTE | 2017-09-13 13:06 | EKG ---
Date Performed: 09/12/2017 Time Performed: 11:14:02 PTAGE: 77 years EKG: ELECTRONIC ATRIAL PACEMAKER ELECTRONIC VENTRICULAR PACEMAKER ABNORMAL RHYTHM ECG INTERPRETA TION BASED ON A DEFAULT AGE OF 40 YEARS NO PREVIOUS TRACING DOCTOR: Cesar Marshall Interpretating Date/Time 09/13/2017 12:57:11
[2017-09-13] MEDS ORDERED: METO100T PO (13:26)
--- NOTE | 2017-09-13 13:26 | HHI.DCPOC ---
Discharge Care Plan Diagnosis: (1) Ventricular tachyarrhythmia Your Health Problems Are: Difficulty with ADL Exercise Tolerance Goals to Promote Your Health * To prevent worsening of your condition and complications * To maintain your health at the optimal level Directions to Meet Your Goals Take your medications as prescribed Follow your dietary instruction Follow activity as directed Keep your appointments as scheduled Take your immunizations and boosters as scheduled If your symptoms worsen call your PCP, if no PCP go to Urgent Care Center or Emergency Room Smoking is Dangerous to Your Health. Avoid second hand smoke Call the 24-hour hour crisis hotline for domestic abuse at Abhi Mitchell MD Sep 13, 2017 13:26
--- NOTE | 2017-09-13 13:30 | HHI.PR ---
Subjective Remarks Follow-up VT. patient doing well with no symptoms. No recurrence of arrhythmia on increase dose of Lopressor. Discussed with RN Objective Vitals Vital Signs Date Time Temp Pulse Resp B/P (MAP) Pulse Ox O2 Delivery O2 Flow Rate FiO2 09/13/17 10:07 Nasal Cannula 2.00 09/13/17 08:00 97.1 67 18 120/75 (90) 96 09/13/17 04:00 97.8 60 18 119/76 (90) 97 09/13/17 04:00 Nasal Cannula 2.00 09/13/17 00:00 61 09/13/17 00:00 Nasal Cannula 2.00 09/13/17 00:00 99.0 59 18 116/75 (89) 97 09/12/17 20:00 98 Nasal Cannula 2.00 09/12/17 20:00 59 09/12/17 20:00 Nasal Cannula 2.00 09/12/17 20:00 97.9 60 16 122/76 (91) 98 09/12/17 16:06 97.2 55 18 152/73 (99) 97 09/12/17 15:54 09/12/17 14:31 61 12 135/81 (99) 98 Nasal Cannula 2.00 09/12/17 13:40 60 13 130/75 (93) 100 Nasal Cannula 2.00 09/12/17 13:40 100 Nasal Cannula 2.00 I/O 09/12/17 09/12/17 09/12/17 09/13/17 09/13/17 09/13/17 07:00 15:00 23:00 07:00 15:00 23:00 Intake Total 100 ml 240 ml Output Total 800 ml Balance -700 ml 240 ml Intake Oral 240 ml IV Total 100 ml Output Urine Total 800 ml # Voids 3 # Bowel Movements 0 Result Diagram: 09/13/17 0544 09/13/17 0544 Objective Remarks GENERAL: This is a well-nourished, well-developed patient, in no apparent distress. SKIN: No rashes, ecchymoses or lesions. Cool and dry. CARDIOVASCULAR: Regular rate and rhythm without murmurs, gallops, or rubs. RESPIRATORY: Clear to auscultation. Breath sounds equal bilaterally. No wheezes , rales, or rhonchi. GASTROINTESTINAL: Abdomen soft, non-tender, nondistended. No guarding. MUSCULOSKELETAL: Extremities without clubbing, cyanosis, or edema. No joint tenderness, effusion, or edema noted. No calf tenderness. Negative Homans sign bilaterally. NEUROLOGICAL: Awake and alert. Cranial nerves II through XII intact. Motor and sensory grossly within normal limits. Five out of 5 muscle strength in all muscle groups. Normal speech. Procedures none A/P Problem List: (1) Ventricular tachyarrhythmia ICD Code: I47.2 - Ventricular tachyarrhythmia Status: Acute Assessment and Plan Ventricular tachyarrhythmia. Patient had a recent AICD/pacemaker placement and was interrogated found with 30 episodes of ventricular tachycardia since September 08 all terminated by patient function. No recurrence after increasing Lopressor to 150 mg twice a day. Elevated AST. This is mild and likely secondary to medication. We will continue to monitor outpatient Chronic medical problems(Afib, HTN, HLD and DVT). Stable. Restart home medications except losartan. Monitor. Adjust medications as needed. Discharge Planning Discharge patient to home Condition on discharge: Improved Regular Diet as tolerated Ad Caridad activity Rx written: Lopressor dose changed to 150 mg twice a day(pt preferred to use 100 mg pil and will split to add up to 150 mg) Follow-up with primary care physician and cardiology Abhi Mitchell MD Sep 13, 2017 13:30
[2017-09-13] MEDS ORDERED: WARFARIN SOD 7.5 MG TAB PO SCH (16:00)
[2017-09-13 16:11] VITALS: BP 131/81; PULSE 68; RESP 18; TEMP 97.6; O2SAT 96
[2017-09-16] MEDS ORDERED: METHOTREXATE 2.5 MG TAB PO SCH (09:00)
== END 2017-09-13 16:25 | disposition home or self-care (01) | DRG 310 ==
LOC: NEPC 11:12 → NEDA 13:49 → N04B 16:06
PROVIDERS: ADMIT Internal Medicine; ATTEND Internal Medicine
DX: I47.2 Ventricular tachycardia (principal); I10 Essential (primary) hypertension; E78.5 Hyperlipidemia, unspecified; M19.90 Unspecified osteoarthritis, unspecified site; I48.91 Unspecified atrial fibrillation; N40.0 Benign prostatic hyperplasia without lower urinary tract symptoms; Z86.718 Personal history of other venous thrombosis and embolism; Z86.711 Personal history of pulmonary embolism; Z79.01 Long term (current) use of anticoagulants; Z95.810 Presence of automatic (implantable) cardiac defibrillator
CPT/HCPCS: 80048; 80053; 82550; 82552; 83735; 84484; 85025; 85610; 85730; 93005; 96374; 96375; J3475